=== PATIENT | male | born 1960 | race Caucasian/White ===

== ENCOUNTER 2018-07-22 08:12 | Emergency (ER) | payer OTHER ==
[2018-07-22 08:23] VITALS: BP 143/80
--- NOTE | 2018-07-22 08:37 | UC ---
Respiratory Complaint HPI - HPI Summary HPI Summary: 57 yo with history of CLL, with 3 day history of fever and cough, with temp to 102 this morning. States he does not do flu shots per Dr. Peralta. History of pneumonia in childhood, nothing recent. Appetite suppressed, drinking well, does not have chest pain or shortness of breath. Mild headache, no nausea, vomiting or diarrhea. - History of Current Complaint Stated Complaint: FEVER CONGESTION COUGH Time Seen by Provider: 07/22/18 08:19 Hx Obtained From: Patient Onset/Duration: Gradual Onset, Lasting Days - 3 Timing: Constant Severity Initially: Moderate Severity Currently: Moderate Pain Intensity: 5 Character: Cough: Productive Aggravating Factors: Recumbent Position Alleviating Factors: OTC Meds - using guaifensin, Upright Position - Risk Factors Pulmonary Embolism Risk Factors: Malignancy Cardiac Risk Factors: Family History - brother of DC in his 50's Pseudomonas Risk Factors: Negative Tuberculosis Risk Factors: Negative - Allergies/Home Medications Allergies/Adverse Reactions: Allergies Allergy/AdvReac Type Severity Reaction Status Date / Time CT dye Allergy Rash Uncoded 07/22/18 08:23 Home Medications: Home Medications Acetaminophen TAB* [Tylenol TAB*] 325 mg PO Q4H PRN 07/22/18 [History Confirmed 07/22/18] Ascorbic Acid TAB* [Vitamin C TAB*] 500 mg PO DAILY 07/22/18 [History Confirmed 07/22/18] Cholecalciferol TAB* [Vitamin D TAB*] 1,000 unit PO DAILY 07/22/18 [History Confirmed 07/22/18] Ergocalciferol (Vitamin D2) [Vitamin D2] 2,000 unit PO DAILY 07/22/18 [History Confirmed 07/22/18] Magnesium [Magnesium Elemental] 30 mg PO DAILY 07/22/18 [History Confirmed 07/22] Multivitamins/Minerals TAB* [Theragran/minerals TAB*] 1 tab PO DAILY 07/22/18 [ History Confirmed 07/22/18] PMH/Surg Hx/FS Hx/Imm Hx Previously Healthy: No Cancer History: Other - chronic lymphocytic leukemia - Surgical History Surgical History: None Surgery Procedure, Year, and Place: hernia surgery - Family History Known Family History: Positive: Cardiac Disease - brother of DC age mid 50' s - Social History Occupation: Employed Full-time Lives: With Family Alcohol Use: Rare Substance Use Type: None Smoking Status (MU): Never Smoked Tobacco Review of Systems All Other Systems Reviewed And Are Negative: Yes Constitutional: Positive: Fever, Fatigue Skin: Positive: Negative Eyes: Positive: Negative ENT: Positive: Sore Throat Respiratory: Positive: Cough Cardiovascular: Positive: Negative Gastrointestinal: Positive: Negative Genitourinary: Positive: Negative Motor: Positive: Negative Neurovascular: Positive: Negative Musculoskeletal: Positive: Arthralgia, Myalgia Neurological: Positive: Headache Psychological: Positive: Negative Is Patient Immunocompromised?: Yes - CLL Physical Exam Triage Information Reviewed: Yes Appearance: Ill-Appearing - looks mildly unwell, alert, mucous membranes moist. Vital Signs: Initial Vital Signs Temp 99.4 F 07/22/18 08:17 Pulse 93 07/22/18 08:17 Resp 16 07/22/18 08:17 BP 143/80 07/22/18 08:17 Pulse Ox 95 07/22/18 08:17 Eyes: Positive: Conjunctiva Clear ENT: Positive: Pharyngeal erythema, TMs normal Neck: Positive: Supple, Nontender, No Lymphadenopathy Respiratory: Positive: No respiratory distress, Rhonchi - coarse breath sounds upper airways, good air entry without crackles. Cardiovascular: Positive: RRR, No Murmur Abdomen Description: Positive: Nontender, No Organomegaly, Soft Neurological: Positive: Alert, Muscle Tone Normal Psychological Exam: Normal Skin Exam: Normal UC Diagnostic Evaluation - Laboratory O2 Sat by Pulse Oximetry: 95 Diagnostic Studies Comment: flu A positive Respiratory Course/Dx - Course Course Of Treatment: begin tamiflu, maintain hydration, monitor for progressive symptoms. - Differential Dx/Diagnosis Differential Diagnosis/HQI/PQRI: Bronchitis, Influenza, Lower Resp Infection Provider Diagnosis: Influenza A Discharge - Sign-Out/Discharge Documenting (check all that apply): Patient Departure All imaging exams completed and their final reports reviewed: No Studies - Discharge Plan Condition: Stable Disposition: HOME Prescriptions: Ondansetron ODT TAB* [Zofran 4 MG Odt TAB*] 4 mg PO Q8H PRN #10 tab.odt PRN Reason: Nausea/Vomiting Oseltamivir CAP* [Tamiflu CAP*] 75 mg PO BID #10 cap Patient Education Materials: Influenza (ED) Referrals: Clau Palomares MD [Primary Care Provider] - Additional Instructions: You have been prescribed tamiflu to help to decrease symptoms of influenza. If you become short of breath or have chest pain, you should proceed to the emergency room for evaluation. Ensure a high intake of fluids to prevent dehydration. Anticipate being out of work at least until 07/26, possibly longer. - Billing Disposition and Condition Condition: STABLE Disposition: Home
[2018-07-22] MEDS ORDERED: Oseltamivir CAP* 75 MG CAP PO ONE ×2 (08:43→09:04)
== END 2018-07-22 09:10 | disposition home or self-care (01) ==
LOC: UCEAST 08:12
DX: J10.1 Influenza due to other identified influenza virus with other respiratory manifestations (principal); Z91.041 Radiographic dye allergy status; Z85.6 Personal history of leukemia
CPT/HCPCS: 99212; A9270-GY; G0463